=== PATIENT | female | born 2000 | race Caucasian/White ===

== ENCOUNTER 2024-05-08 12:13 | Emergency (ER) | payer MEDICAID, OTHER ==
[~2024-05-08] VITALS: Ht 167.6 cm; Wt 115.0 kg
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
--- NOTE | 2024-05-08 14:54 | DVH ---
CLINICAL INDICATION: right shoulder trauma TECHNIQUE: 1 radiographic views of the right shoulder were obtained. Comparison: None FINDINGS/IMPRESSION: There is no evidence of acute fracture . Limited evaluation for dislocation on a single view with no significant dislocation noted. The visualized joint space is well maintained. The alignment is anatomical. There is no radiopaque foreign body.
[2024-05-08 15:33] VITALS: BP 108/78; PULSE 72; RESP 20; O2SAT 99
== END 2024-05-08 15:36 | disposition home or self-care (01) ==
LOC: ER 12:13
DX: S43.401A Unspecified sprain of right shoulder joint, initial encounter (principal); I10 Essential (primary) hypertension; E66.01 Morbid (severe) obesity due to excess calories; Z88.1 Allergy status to other antibiotic agents; Z68.41 Body mass index [BMI] 40.0-44.9, adult; X58.XXXA Exposure to other specified factors, initial encounter; Y93.89 Activity, other specified; Y92.89 Other specified places as the place of occurrence of the external cause; Y99.8 Other external cause status
CPT/HCPCS: 73020